=== PATIENT | female | born 1985 | race Caucasian/White ===

== ENCOUNTER 2019-01-18 02:30 | Emergency (ER) | payer OTHER ==
[~2019-01-18] VITALS: Ht 175.3 cm; Wt 75.0 kg
[~2019-01-18 02:30] MED LIST: FISH OIL1000 MG; PRENATAL1 TA1 PO
[2019-01-18 02:36] VITALS: BP 135/85; TEMP 97
[2019-01-18] MEDS ORDERED: MULTI VITAMINS1 TAB PO (02:40)
[2019-01-18 02:49] LABS: COLLECTION METHOD CLEAN CATCH
[2019-01-18 02:59] LABS: MUCOUS Present /lpf; PH 7 (5-8); SQUAMOUS EPITHELIAL 0-2 /hpf; URINE APPEARANCE Hazy; URINE BACTERIA Rare /hpf; URINE BILIRUBIN Negative (NEGATIVE); URINE BLOOD 2+ (NEGATIVE); URINE COLOR Red; URINE GLUCOSE 1+ (NEGATIVE); URINE KETONE Negative (NEGATIVE); URINE LEUKOCYTE ESTERASE 1+ (NEGATIVE); URINE NITRATE Negative (NEGATIVE); URINE PROTEIN(semi-quant) 2+ (NEGATIVE); URINE RBC >50 /hpf; URINE UROBILINOGEN Negative (NEGATIVE)
[2019-01-18] MEDS ORDERED: CIPRO 500MG TA500 MG PO (03:04)
[2019-01-18 03:50] VITALS: PULSE 81
== END 2019-01-18 03:50 | disposition home or self-care (01) ==
LOC: COL.ER 02:30
PROVIDERS: Emergency Medicine
DX: N39.0 Urinary tract infection, site not specified (principal)
CPT/HCPCS: J0696